=== PATIENT | male | born 1970 ===

== ENCOUNTER 2018-02-21 01:52 | Emergency (ER) | payer BC ==
[2018-02-21 01:52] VITALS: BMI 26.5
[2018-02-21 02:15] VITALS: TEMP 98.5
[2018-02-21] MEDS ORDERED: cefTRIAXone 250 MG, Lidocaine Hydrochloride 1% 1 ML IM ONE (03:12)
--- NOTE | 2018-02-21 03:15 | C.PDOC ---
History Of Present Illness Patient presents to the ER with a complaint of rash on his scrotum. Patient reports he had unprotected sex a few days ago and notes the rash has now spread to his buttock area. Denies penile discharge or penile pain. Time Seen by Provider: 02/21/18 02:54 Chief Complaint (Nursing): Abnormal Skin Integrity History Per: Patient History/Exam Limitations: no limitations Onset/Duration Of Symptoms: Days Current Symptoms Are (Timing): Still Present Quality Of Symptoms: Itching Severity: Mild Pain Scale Rating Of: 2 Recent travel outside of the [place]: No Past Medical History Reviewed: Historical Data, Nursing Documentation, Vital Signs Vital Signs: Last Vital Signs Temp 98.5 F 02/21/18 02:07 Pulse 62 02/21/18 02:07 Resp 20 02/21/18 02:07 BP 183/119 H 02/21/18 02:07 Pulse Ox 95 02/21/18 03:18 Family History: States: Unknown Family Hx - Social History Hx Alcohol Use: No Hx Substance Use: No Review Of Systems Constitutional: Negative for: Fever, Chills Gastrointestinal: Negative for: Abdominal Pain Genitourinary: Positive for: Rash. Negative for: Scrotal Pain, Penile Pain Physical Exam - Physical Exam Appears: Non-toxic Skin: Warm, Dry Head: Normacephalic Oral Mucosa: Moist Chest: Symmetrical, No Tenderness Cardiovascular: Rhythm Regular Respiratory: No Rales, No Rhonchi, No Wheezing Gastrointestinal/Abdominal: Soft, No Tenderness Male Genital: Other (Itchy, scabby, lesions over scrotum) Neurological/Psych: Oriented x3 ED Course And Treatment O2 Sat by Pulse Oximetry: 95 (room air) Pulse Ox Interpretation: Normal Progress Note: Rocephin and zithromax administered. Disposition Counseled Patient/Family Regarding: Studies Performed, Diagnosis, Need For Followup - Disposition Referrals: [facility] [Outside] Disposition: HOME/ ROUTINE Disposition Time: 03:14 Condition: FAIR Prescriptions: Permethrin 5% [Permethrin 5% Cream] 6 applic TOP ONCE #1 tube Instructions: Skin Rash (DC) Forms: [employer] (Paraguayan) - Clinical Impression Clinical Impression: STD (male) - Scribe Statement The provider has reviewed the documentation as recorded by the Scribmathew Doran All medical record entries made by the Scribe were at my direction and personally dictated by me. I have reviewed the chart and agree that the record accurately reflects my personal performance of the history, physical exam, medical decision making, and the department course for this patient. I have also personally directed, reviewed, and agree with the discharge instructions and disposition.
[2018-02-21 03:41] VITALS: BP 165/90; PULSE 85; RESP 14; O2SAT 99
== END 2018-02-21 03:41 | disposition home or self-care (01) ==
LOC: C.ER 01:52
DX: A64 Unspecified sexually transmitted disease (principal)